=== PATIENT | female | born 1970 | race Two or more races ===

== ENCOUNTER 2017-11-29 19:59 | Emergency (ER) | payer SELFPAY ==
[~2017-11-29] VITALS: Ht 165.1 cm; Wt 95.3 kg
[~2017-11-29 19:59] MED LIST: ATARAX25 MG ORAL; CIPRO500 MG PO; IBUPROFEN600 MG ORAL; METRONIDAZOLE500 MG ORAL; NKM; NORCO 5-325 TA1 EACH ORAL; NORVASC5 MG ORAL; PREDNISONE20 MG ORAL; VALIUM5 MG ORAL
--- NOTE | 2017-11-29 21:17 | Emergency Room Report ---
History of Present Illness General Chief Complaint: Palpitations Source: Patient Present Illness HPI Patient presents with palpitations. It was worse 3 days ago when she had a scare at work. 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 The palpitations she first noted 2 years ago. They come with periods of anxiety. She been treated for hypertension and takes 5 mg of amlodipine at night. She doesn't feel dizziness when this happens occasionally she feels some tingling in her hands and feet. She denies any chest pain during these times. Her last period was last week and normal for her. She denies any fevers chills. She has occasional nausea. Bowels have been normal. The patient has increased stress. Her son has diabetes however this is better controlled with oral medication. He doesn't have Medi-Ort[employer] which is difficult for her. Her job creates stress also. She does not feel suicidal or homicidal and does not take medication for depression at this time. She did see a therapist and found it somewhat helpful, however, she has no one to help her with the stress. She occasionally drinks beer. It doesn't seem to be related to these episodes of palpitations. When initially started on antihypertensives, she had an adverse reaction to labetalol with headache and ringing in her ears. This was changed to amlodipine and she is tolerating this. 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 lives with son with diabetes Last Menstrual Period: 11/21/2017 Now: No Reviewed Nursing Documentation: PMH: Agreed; PSxH: Agreed Nursing Documentation-PMH Hx Hypertension: Yes Review of Systems All Other Systems: negative except mentioned in HPI Physical Exam Vital Signs Date Time Temp Pulse Resp B/P (MAP) Pulse Ox O2 Delivery O2 Flow Rate FiO2 11/29/17 20:21 98.1 80 16 155/91 97 Room Air 98.1 Sp02 EP Interpretation: reviewed, normal General Appearance: well appearing, no apparent distress, GCS 15 Head: normocephalic Eyes: bilateral eye normal inspection, bilateral eye PERRL, bilateral eye other - pterygia ENT: moist mucus membranes Neck: supple Respiratory: lungs clear, normal breath sounds Cardiovascular #1: regular rate, rhythm, no edema Cardiovascular #2: 2+ radial (R) Gastrointestinal: normal inspection, normal bowel sounds, non tender, no mass, non-distended Musculoskeletal: back normal, gait/station normal, normal range of motion, no calf tenderness, Sangeeta's Sign negative Neurologic: alert, oriented x3, director business intelligence III-XII nml as tested, motor strength/tone normal, DTRs symmetric, sensory intact, cerebellar normal, normal gait, speech normal Psychiatric: anxious - Occasionally tearful Skin: normal inspection, warm/dry, other - Venous disease bilater Medical Decision Making Diagnostic Impression: Primary Impression: Palpitations Additional Impressions: Hypokalemia Anxiety and depression Hypertension Qualified Codes: I10 - Essential (primary) hypertension ER Course Patient presents with palpitations. Differential includes anxiety, acute myocardial infarction, supraventricular tachycardia, hyper or hypothyroidism, electrolyte abnormality amongst others. Based on her physical exam and oxygen saturation coronary pulmonary embolus is extremely unlikely. Evaluation will be with EKG, chest x-ray and labs. The patient was given a dose of her amlodipine as she takes it at night and her blood pressure somewhat high at the moment. She will be observed on the monitoring engineer. EKG without injury. CXR normal. CBC and CMP normal except for slightly low potassium. TSH normal. Troponin negative. Potassium given here. Patient with occasional PVCs on monitor. No symptoms with these. Patient somewhat improved. At times tearful in relating the stress in her life. Discussed need for follow up and that the medicine I am prescribing will help with palpitations and stress. Will need to have potassium rechecked. Discussed dietary sources. Also discussed that medication might help with the stress (Paxil). The patient is stable for outpatient observation and treatment. Laboratory Tests Test 11/29/17 21:00 White Blood Count 6.7 K/UL (4.8-10.8) Red Blood Count 4.61 M/UL (4.20-5.40) Hemoglobin 13.7 G/DL (12.0-16.0) Hematocrit 40.1 % (37.0-47.0) Mean Corpuscular Volume 87 FL (80-99) Mean Corpuscular Hemoglobin 29.7 PG (27.0-31.0) Mean Corpuscular Hemoglobin Concent 34.1 G/DL (32.0-36.0) Red Cell Distribution Width 10.9 % (11.6-14.8) L Platelet Count 305 K/UL (150-450) Mean Platelet Volume 5.9 FL (6.5-10.1) L Neutrophils (%) (Auto) 49.7 % (45.0-75.0) Lymphocytes (%) (Auto) 37.0 % (20.0-45.0) Monocytes (%) (Auto) 6.5 % (1.0-10.0) Eosinophils (%) (Auto) 5.5 % (0.0-3.0) H Basophils (%) (Auto) 1.3 % (0.0-2.0) Erythrocyte Sedimentation Rate 26 MM/HR (0-20) H Prothrombin Time 10.7 SEC (9.30-11.50) Prothrombin Time INR 1.0 (0.9-1.1) PTT 30 SEC (23-33) Urine Color Pale yellow Urine Appearance Clear Urine pH 6.5 (4.5-8.0) Urine Specific [place] 1.010 (1.005-1.035) Urine Protein Negative (NEGATIVE) Urine Glucose (UA) Negative (NEGATIVE) Urine Ketones Negative (NEGATIVE) Urine Occult Blood 2+ (NEGATIVE) H Urine Nitrite Negative (NEGATIVE) Urine Bilirubin Negative (NEGATIVE) Urine Urobilinogen Normal MG/DL (0.0-1.0) Urine Leukocyte Esterase Negative (NEGATIVE) Urine RBC 2-4 /HPF (0 - 2) H Urine WBC 0-2 /HPF (0 - 2) Urine Squamous Epithelial Cells Few /LPF (NONE/OCC) Urine Bacteria Few /HPF (NONE) Urine HCG, Qualitative Negative (NEGATIVE) Sodium Level 137 MMOL/L (136-145) Potassium Level 3.4 MMOL/L (3.5-5.1) L Chloride Level 102 MMOL/L (98-107) Carbon Dioxide Level 28 MMOL/L (21-32) Anion Gap 8 mmol/L (5-15) Blood Urea Nitrogen 15 mg/dL (7-18) Creatinine 0.7 MG/DL (0.55-1.30) Estimate Glomerular Filtration Rate > 60 mL/min (>60) Glucose Level 104 MG/DL (74-106) Calcium Level 9.2 MG/DL (8.5-10.1) Total Bilirubin 0.4 MG/DL (0.2-1.0) Aspartate Amino Transferase (AST) 16 U/L (15-37) Alanine Aminotransferase (ALT) 36 U/L (12-78) Alkaline Phosphatase 93 U/L (46-116) Total Creatine Kinase 124 U/L (26-308) Troponin I 0.000 ng/mL (0.000-0.056) Pro-B-Type Natriuretic Peptide 41 pg/mL (0-125) Total Protein 8.2 G/DL (6.4-8.2) Albumin 4.1 G/DL (3.4-5.0) Globulin 4.1 g/dL Albumin/Globulin Ratio 1.0 (1.0-2.7) Thyroid Stimulating Hormone (TSH) 2.004 uiU/mL (0.358-3.740) Urine Opiates Screen Negative (NEGATIVE) Urine Barbiturates Screen Negative (NEGATIVE) Phencyclidine (PCP) Screen Negative (NEGATIVE) Urine Amphetamines Screen Negative (NEGATIVE) Urine Benzodiazepines Screen Negative (NEGATIVE) Urine Cocaine Screen Negative (NEGATIVE) Urine Marijuana (THC) Screen Negative (NEGATIVE) EKG Diagnostic Results Rate: normal Rhythm: NSR ST Segments: no acute changes Rhythm Strip Diag. Results EP Interpretation: yes Rhythm: NSR, no PVC's, no ectopy Chest X-Ray Diagnostic Results Chest X-Ray Diagnostic Results : Chest X-Ray Ordered: Yes # of Views/Limited/Complete: 1 View Indication: Other EP Interpretation: Yes Interpretation: no consolidation, no effusion, no pneumothorax Impression: No acute disease Electronically Signed by: Electronically signed by Mir Moya MD Last Vital Signs Date Time Temp Pulse Resp B/P (MAP) Pulse Ox O2 Delivery O2 Flow Rate FiO2 11/29/17 23:32 97.5 71 22 142/71 98 Room Air 97.5 Status: improved Disposition: HOME, SELF-CARE Condition: Improved Scripts Propranolol Hcl* (INDERAL*) 10 Mg Tablet 10 MG ORAL BID, #30 TAB 2 Refills Prov: Mri Moya M.D. 11/29/17 Mir Moya M.D. Nov 29, 2017 21:17
[2017-11-29 21:27] LABS: BASOPHILS % (AUTO) 1.3 % (0.0-2.0); EOSINOPHILS % (AUTO) 5.5 % (0.0-3.0); HEMATOCRIT 40.1 % (37.0-47.0); HEMOGLOBIN 13.7 G/DL (12.0-16.0); MEAN CORPUSCULAR VOLUME 87 FL (80-99); MONOCYTES % (AUTO) 6.5 % (1.0-10.0); NEUTROPHILS % (AUTO) 49.7 % (45.0-75.0); PLATELET COUNT 305 K/UL (150-450); RED BLOOD COUNT 4.61 M/UL (4.20-5.40); RED CELL DISTRIBUTION WIDTH 10.9 % (11.6-14.8); WHITE BLOOD COUNT 6.7 K/UL (4.8-10.8)
[2017-11-29 21:29] LABS: APPEARANCE,URINE CLEAR; BILIRUBIN, URINE NEGATIVE (NEGATIVE); COLOR,URINE PALE YELLOW; GLUCOSE, URINE (UA) NEGATIVE (NEGATIVE); KETONES,URINE NEGATIVE (NEGATIVE); LEUKOCYTE ESTERASE ,URINE NEGATIVE (NEGATIVE); NITRITE,URINE NEGATIVE (NEGATIVE); PH,URINE 6.5 (4.5-8.0); PROTEIN,URINE NEGATIVE (NEGATIVE); UROBILINOGEN,URINE NORMAL MG/DL (0.0-1.0)
[2017-11-29 21:52] LABS: ANION GAP 8 mmol/L (5-15); BLOOD UREA NITROGEN 15 mg/dL (7-18); CALCIUM 9.2 MG/DL (8.5-10.1); CARBON DIOXIDE 28 MMOL/L (21-32); CHLORIDE 102 MMOL/L (98-107); CREATININE 0.7 MG/DL (0.55-1.30); POTASSIUM 3.4 MMOL/L (3.5-5.1); SODIUM 137 MMOL/L (136-145)
[2017-11-29 22:04] LABS: ALANINE AMINOTRANSFERASE 36 U/L (12-78); ALBUMIN 4.1 G/DL (3.4-5.0); ALKALINE PHOSPHATASE 93 U/L (46-116); ASPARTATE AMINO TRANSFERASE 16 U/L (15-37); BILIRUBIN,TOTAL 0.4 MG/DL (0.2-1.0); CREATINE KINASE 124 U/L (26-308)
[2017-11-29 22:10] VITALS: BP 133/89
[2017-11-29] MEDS ORDERED: PROPRANOLOL HCL10 MG ORAL (23:10)
[2017-11-29 23:31] VITALS: BP 142/71
[2017-11-29 23:32] VITALS: BP 142/71
--- NOTE | 2017-11-30 11:13 | Diagnostic Imaging Report ---
Indication: Chest pain Comparison: 03/18/2015 A single view chest radiograph was obtained. Findings: Cardiomediastinal appearance is within normal limits for age. Pulmonary vascularity is appropriate. The diaphragmatic contour is smooth and costophrenic angles are sharp. No pleural effusions are identified. The bones are unremarkable. Impression: No acute findings
--- NOTE | 2017-11-30 14:18 | Cardiology Report ---
APPROVED REPORT EKG Measurement Heart [id number] Normal sinus rhythm Normal ECG
== END 2017-11-29 23:35 | disposition home or self-care (01) ==
LOC: EMR 21:19
DX: R00.2 Palpitations (principal); E87.6 Hypokalemia; F41.9 Anxiety disorder, unspecified; F32.9 Major depressive disorder, single episode, unspecified; I10 Essential (primary) hypertension
CPT/HCPCS: 36415; 71045; 80053; 80307; 81003; 81025; 82550; 83880; 84443; 84484; 85025; 85610; 85651; 85730; 93005; 99283; J8499